=== PATIENT | male | born 1950 | race Caucasian/White ===

== ENCOUNTER 2021-10-04 17:37 | Emergency (ER) | payer OTHER ==
[~2021-10-04] VITALS: Ht 175.3 cm; Wt 72.6 kg
[~2021-10-04 17:37] MED LIST: ASPI325 PO; Hydrochlorothia25 MG PO; NITR.3SL SL; Prednisone20 MG PO
== END 2021-10-04 20:00 | disposition home or self-care (01) ==
LOC: ER 17:37
DX: S81.811A Laceration without foreign body, right lower leg, initial encounter (principal); S43.52XA Sprain of left acromioclavicular joint, initial encounter; Z79.52 Long term (current) use of systemic steroids; Z88.0 Allergy status to penicillin; W45.8XXA Other foreign body or object entering through skin, initial encounter
CPT/HCPCS: 73030; J0690